=== PATIENT | female | born 1980 | race Caucasian/White ===

== ENCOUNTER 2020-11-30 21:27 | Emergency (ER) | payer MEDICAID ==
[~2020-11-30] VITALS: Ht 152.4 cm; Wt 77.7 kg
[2020-11-30 21:38] VITALS: BP 160/90
--- NOTE | 2020-11-30 21:40 | NUR ---
TO LOBBY A/W BED AMBULATORY
--- NOTE | 2020-11-30 22:09 | NUR ---
PATIENT LEFT WITHOUT BEING SEEN BY DR. HOLDEN. NO FURTHER CARE PROVIDED FOR PATIENT.. MOTHER CAME AND BRING HER HOME.
--- NOTE | 2020-11-30 22:15 | NUR ---
SHE RETURNED BACK , A/W FOR ERMD
--- NOTE | 2020-11-30 22:23 | NUR ---
SEEN AND TALKED BY [place], WITH THE SON.
--- NOTE | 2020-11-30 22:55 | NUR ---
SHE REFUSED BLOOD DRAWN. PROVIDED A CUP FOR URINE SPICEMEN. WENT TO REST ROOM.
--- NOTE | 2020-11-30 23:30 | NUR ---
PROVIDED A FOOD PACK AND EATING WITH APPETITE.
--- NOTE | 2020-12-01 00:24 | NUR ---
PTS SISTER PRASANTH CALLED [phone]
--- NOTE | 2020-12-01 00:50 | NUR ---
Blood for labwork drawn from [facility]. Patient tolerated well.
[2020-12-01 01:28] LABS: BASOPHILS % (AUTO) 0.6 % (0.0-2.0); EOSINOPHILS # (AUTO) 0.3 K/uL (0-0.4); EOSINOPHILS % (AUTO) 5.1 % (0.0-4.0); HEMATOCRIT 38.7 % (36-48); HEMOGLOBIN 12.2 g/dL (12.0-16.0); LYMPHOCYTES # (AUTO) 2.1 K/uL (2.5-16.5); LYMPHOCYTES % (AUTO) 30.3 % (20.5-51.1); MEAN CORPUSCULAR HEMOGLOBIN 26 pg (27-31); MEAN CORPUSCULAR HGB CONC 32 g/dL (33-37); MEAN CORPUSCULAR VOLUME 83.7 fL (80-94); MONOCYTES # (AUTO) 0.6 K/uL (0.8-1.0); MONOCYTES % (AUTO) 8.7 % (1.7-9.3); NEUTROPHILS # (AUTO) 3.8 K/uL (1.8-7.7); NEUTROPHILS % (AUTO) 55.3 % (42.2-75.2); PLATELET COUNT (AUTO) 241 K/uL (140-450); RED BLOOD CELL COUNT(AUTO) 4.62 MIL/uL (4.20-5.40); RED CELL DISTRIBUTION WIDTH 14.2 % (11.6-13.7); WHITE BLOOD COUNT (AUTO) 6.9 K/uL (4.8-10.8)
[2020-12-01 01:47] LABS: ALBUMIN 3.4 g/dL (3.4-5.0); ANION GAP 7.5 (8-16); ASPARTATE AMINOTRANSFERASE 31 U/L (15-37); CARBON DIOXIDE 29.2 mmol/L (21-32); CHLORIDE 103 mmol/L (98-107); CREATININE 0.6 mg/dL (0.6-1.3); GFR ARICAN-AMERICAN 144 mL/min (>90); GLUCOSE 130 mg/dL (74-106); POTASSIUM 3.7 mmol/L (3.5-5.1); SODIUM SERUM 136 mmol/L (136-145); TOTAL BILIRUBIN 0.5 mg/dL (0.0-1.0); UREA NITROGEN, BLOOD 8 mg/dL (7-18)
--- NOTE | 2020-12-01 01:57 | NUR ---
[facility] [phone]
--- NOTE | 2020-12-01 02:15 | NUR ---
ALL RESULTS BACK AND NOTED BY ERMD AND FOR D/C
[2020-12-01 02:30] VITALS: BP 132/82
--- NOTE | 2020-12-01 02:30 | NUR ---
Patient discharged with v/s stable. Written and verbal after care instructions given and explained. Patient verbalized understanding. Ambulatory with steady gait. All questions addressed prior to discharge. Advised to follow up with PMD.
[2020-12-01 03:34] LABS: APPEARANCE,URINE CLEAR (CLEAR); BILIRUBIN,URINE NEGATIVE (NEGATIVE); BLOOD, URINE NEGATIVE (NEGATIVE); COLOR,URINE YELLOW (YELLOW); LEUKOCYTE ESTERASE ,URINE NEGATIVE (NEGATIVE); NITRITE, URINE NEGATIVE (NEGATIVE); PH,URINE 7.5 (5.0-9.0); UGLUCOSE NEGATIVE (NEGATIVE)
[2020-12-01 03:43] LABS: BARBITURATE, URINE NEGATIVE ng/ml (NEG <=200); BENZODIAZEPINE, URINE NEGATIVE ng/mL (NEG <=200); COCAINE, URINE POSITIVE ng/mL (NEG <=300)
[2020-12-01 03:44] LABS: CANNABINOID, URINE POSITIVE ng/mL (NEG <=50); OPIATE, URINE NEGATIVE ng/mL (NEG <=2000); PHENCYCLIDINE SCREEN,URINE NEGATIVE ng/mL (NEG <=25)
== END 2020-12-01 02:30 | disposition home or self-care (01) ==
LOC: MED 21:27
DX: R41.0 Disorientation, unspecified (principal)
CPT/HCPCS: 36415; 70450; 80053; 80305; 81003; 81025; 82140; 85025; 99284; G0482

== ENCOUNTER 2020-12-21 07:04 | Emergency (ER) | payer MEDICAID ==
[~2020-12-21] VITALS: Ht 152.4 cm; Wt 99.8 kg
[2020-12-21 07:13] VITALS: BP 161/101
[2020-12-21] MEDS ORDERED: ACETAMINOPHEN EXTRA STRENGTH 500 MG TAB PO ONE (07:20)
[2020-12-21] MEDS ORDERED: IBUPROFEN 600 MG TAB PO ONE (07:20)
[2020-12-21 07:52] VITALS: BP 161/101
== END 2020-12-21 07:52 | disposition home or self-care (01) ==
LOC: MED 07:04
DX: T73.0XXA Starvation, initial encounter (principal); R25.2 Cramp and spasm; F20.9 Schizophrenia, unspecified; X58.XXXA Exposure to other specified factors, initial encounter
CPT/HCPCS: 81002; 81025; 99283

== ENCOUNTER 2021-01-28 14:23 | Emergency (ER) | payer MEDICAID ==
[~2021-01-28] VITALS: Ht 167.6 cm; Wt 90.7 kg
[2021-01-28 14:23] VITALS: BP 139/87
--- NOTE | 2021-01-28 14:26 | NUR ---
PT AWAKE AND ALERT X4 AT THIS TIME. PT STATES SHE CAME TO THE HOSPITAL C/O CHEST PAIN. PT WAS ADVISED THAT SHE HAD A TONIC CLONIC SEIZURE IN THE ER LOBBY.
--- NOTE | 2021-01-28 15:01 | NUR ---
40 Y/O FEMALE BIB CAREGIVER, BRYSON, FOR CHEST PAIN, WHILE CHECKING IN IN ER LOBBY, PT FELL TO FLOOR AND BEGAN HAVING TONIC CLONIC SEIZURE FOR 90 SECONDS. NO HEAD TRAUMA SUSTAINED AT THIS TIME. PT ABLE TO AMBULATE TO BATHROOM AT THIS TIME TO PROVIDE URINE SAMPLE, SHE STATES SHE IS FEELING WEAK, BUT NO PAIN AT THIS TIME. PERRLA 3MM. ABLE TO FOLLOW COMMANDS. [employer] 15. RESP EVEN AND UNLABORED. VSS. PMH: SEIZURES NKDA
[2021-01-28 15:31] LABS: BASOPHILS % (AUTO) 0.6 % (0.0-2.0); EOSINOPHILS # (AUTO) 0.1 K/uL (0-0.4); EOSINOPHILS % (AUTO) 1.7 % (0.0-4.0); HEMATOCRIT 37.4 % (36-48); HEMOGLOBIN 12.2 g/dL (12.0-16.0); LYMPHOCYTES # (AUTO) 1.7 K/uL (2.5-16.5); LYMPHOCYTES % (AUTO) 21.6 % (20.5-51.1); MEAN CORPUSCULAR HEMOGLOBIN 27 pg (27-31); MEAN CORPUSCULAR HGB CONC 33 g/dL (33-37); MEAN CORPUSCULAR VOLUME 81.1 fL (80-94); MONOCYTES % (AUTO) 13.1 % (1.7-9.3); NEUTROPHILS # (AUTO) 4.9 K/uL (1.8-7.7); PLATELET COUNT (AUTO) 256 K/uL (140-450); RED BLOOD CELL COUNT(AUTO) 4.61 MIL/uL (4.20-5.40); RED CELL DISTRIBUTION WIDTH 15.3 % (11.6-13.7); WHITE BLOOD COUNT (AUTO) 7.7 K/uL (4.8-10.8)
--- NOTE | 2021-01-28 15:40 | NUR ---
PATIENT ELOPED FROM FACILITY. DISCHARGE INSTRUCTIONS NOT GIVEN TO PATIENT. DR. ROMERO NOTIFIED. UTE LOPEZ NOTIFIED D/T PATIENT LEAVING WITH IV IN RIGHT ARM
[2021-01-28 15:41] VITALS: BP 132/81
[2021-01-28 15:49] LABS: ALBUMIN 3.9 g/dL (3.4-5.0); ANION GAP 12.1 (8-16); CARBON DIOXIDE 27.7 mmol/L (21-32); CREATININE 0.7 mg/dL (0.6-1.3); POTASSIUM 3.8 mmol/L (3.5-5.1); TOTAL BILIRUBIN 0.8 mg/dL (0.0-1.0)
== END 2021-01-28 15:40 | disposition left against medical advice (07) ==
LOC: MED 14:23
DX: R56.9 Unspecified convulsions (principal); F12.90 Cannabis use, unspecified, uncomplicated; F15.90 Other stimulant use, unspecified, uncomplicated
CPT/HCPCS: 36415; 80053; 84484; 85025; 93005; 99284

== ENCOUNTER 2021-01-30 09:19 | Emergency (ER) | payer MEDICAID ==
[~2021-01-30] VITALS: Ht 154.9 cm; Wt 79.4 kg
[2021-01-30 09:21] VITALS: BP 145/95
[2021-01-30 09:52] LABS: BASOPHILS % (AUTO) 0.3 % (0.0-2.0); EOSINOPHILS # (AUTO) 0.2 K/uL (0-0.4); EOSINOPHILS % (AUTO) 3.3 % (0.0-4.0); HEMATOCRIT 39.3 % (36-48); HEMOGLOBIN 12.8 g/dL (12.0-16.0); LYMPHOCYTES # (AUTO) 1.3 K/uL (2.5-16.5); LYMPHOCYTES % (AUTO) 18.1 % (20.5-51.1); MEAN CORPUSCULAR HEMOGLOBIN 26 pg (27-31); MEAN CORPUSCULAR HGB CONC 33 g/dL (33-37); MEAN CORPUSCULAR VOLUME 81.3 fL (80-94); MONOCYTES # (AUTO) 0.8 K/uL (0.8-1.0); MONOCYTES % (AUTO) 10.9 % (1.7-9.3); NEUTROPHILS # (AUTO) 4.9 K/uL (1.8-7.7); NEUTROPHILS % (AUTO) 67.4 % (42.2-75.2); PLATELET COUNT (AUTO) 242 K/uL (140-450); RED BLOOD CELL COUNT(AUTO) 4.84 MIL/uL (4.20-5.40); RED CELL DISTRIBUTION WIDTH 15.2 % (11.6-13.7); WHITE BLOOD COUNT (AUTO) 7.3 K/uL (4.8-10.8)
[2021-01-30 10:15] LABS: ALBUMIN 3.7 g/dL (3.4-5.0); ANION GAP 12.5 (8-16); ASPARTATE AMINOTRANSFERASE 19 U/L (15-37); CARBON DIOXIDE 27.4 mmol/L (21-32); CHLORIDE 106 mmol/L (98-107); CREATININE 0.7 mg/dL (0.6-1.3); GFR ARICAN-AMERICAN 120 mL/min (>90); GLUCOSE 85 mg/dL (74-106); POTASSIUM 3.9 mmol/L (3.5-5.1); SODIUM SERUM 142 mmol/L (136-145); TOTAL BILIRUBIN 0.6 mg/dL (0.0-1.0); UREA NITROGEN, BLOOD 16 mg/dL (7-18)
[2021-01-30 10:17] LABS: APPEARANCE,URINE SL CLOUDY (CLEAR); BILIRUBIN,URINE NEGATIVE (NEGATIVE); BLOOD, URINE NEGATIVE (NEGATIVE); COLOR,URINE YELLOW (YELLOW); LEUKOCYTE ESTERASE ,URINE NEGATIVE (NEGATIVE); NITRITE, URINE NEGATIVE (NEGATIVE); UGLUCOSE NEGATIVE (NEGATIVE)
[2021-01-30 10:17] LABS: ACETAMINOPHEN < 0.5 ug/ml (10-30); SALICYLATE < 2.8 mg/dL (2.8-20.0)
[2021-01-30 10:39] LABS: CKMB RELATIVE INDEX 0.3 (0.0-2.5); CREATINE KINASE MB 0.9 ng/mL (0-3.6)
[2021-01-30 10:40] LABS: BARBITURATE, URINE NEGATIVE ng/ml (NEG <=200); BENZODIAZEPINE, URINE NEGATIVE ng/mL (NEG <=200); CANNABINOID, URINE NEGATIVE ng/mL (NEG <=50); COCAINE, URINE NEGATIVE ng/mL (NEG <=300); OPIATE, URINE NEGATIVE ng/mL (NEG <=2000); PHENCYCLIDINE SCREEN,URINE NEGATIVE ng/mL (NEG <=25)
[2021-01-30 14:10] VITALS: BP 144/83
== END 2021-01-30 14:10 | disposition home or self-care (01) ==
LOC: MED 09:19
DX: F15.10 Other stimulant abuse, uncomplicated (principal); R41.82 Altered mental status, unspecified
CPT/HCPCS: 36415; 70450; 71045; 80053; 80305; 81003; 81025; 82550; 82553; 84484; 85025; 93005; 99285; G0480; G0482

== ENCOUNTER 2021-10-27 11:22 | Emergency (ER) | payer MEDICAID ==
[~2021-10-27] VITALS: Ht 154.9 cm; Wt 85.5 kg
[2021-10-27 11:34] VITALS: BP 138/85
--- NOTE | 2021-10-27 11:40 | NUR ---
DR ROQUE AT BEDSIDE.
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
[2021-10-27 12:01] VITALS: BP 138/85
--- NOTE | 2021-10-27 12:03 | NUR ---
Chart checked and completed. The patient's care was reviewed and supervised by Robyn Mcadams RN.
== END 2021-10-27 12:02 | disposition home or self-care (01) ==
LOC: MED 11:22
DX: S81.802D Unspecified open wound, left lower leg, subsequent encounter (principal); X58.XXXD Exposure to other specified factors, subsequent encounter
CPT/HCPCS: 90471; 90715; 99283